=== PATIENT | female | born 1990 | race Caucasian/White ===

== ENCOUNTER 2024-05-07 20:53 | Outpatient (CLI) | payer OTHER, SELFPAY ==
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
--- OUTSIDE RECORDS SUMMARY | 2024-05-11 01:19 | XMS_ITS | Clinical Summary ---
Author Organization [facility] Address [place], [place] [address] Care Team Providers Care Deputy Sheriff Lieutenant Name Role Phone SanketRuth Primary Care Provider [phone] Allergies Active Allergy Reactions Criticality Noted Date Comments Latex Contact Dermatitis 05/31/2011 Medications Medication Sig Dispensed Refills Start Date End Date Status albuterol HFA (PRO-AIR; VENTOLIN; PROVENTIL) 90 mcg/actuation inhalerIndications: Mild intermittent asthma without complication Inhale 1-2 Puffs by mouth every 4 hours if needed (wheezing, trouble breathing). 2 Each 1 03/23/2021 Active hydroCHLOROthiazide (HCTZ) 25 mg tabletIndications:P rimary hypertension Take 1 Tablet (25 mg) by mouth once daily. 90 Tablet 3 11/16/2023 Active tirzepatide (MOUNJARO) 2.5 mg/0.5 mL penIndications:Morb id obesity (HC) Inject 0.5 mL (2.5 mg) subcutaneous once weekly. 6 mL 02/01/2024 Active Hospital, Clinic, or Other Facility Administered Medication Ordered Dose Route Frequency Start Date End Date Status levonorgestrel intrauterine device (MIRENA) 1 DeviceIndications:Encounter for insertion of mirena IUD 1 Device IU Q 5 YEARS 09/28/2020 Active Active Problems Problem Noted Date Diagnosed Date Primary hypertension 11/16/2023 Morbid obesity 11/16/2023 Mild intermittent asthma without complication Overview: Mild obstruction on PFT's 02/2020 Need for rhogam due to Rh negative mother 2013 Low grade squamous intraepit helial lesion (LGSIL) on cervical Pap smear 06/23/2014 Overview: 06/2014 LSIL 01/2015 [place] benign 02/2016 NIL/HPV negative 06/2018 NIL/HPV negative 09/2020 NIL/HPV negative Plan: routine screening, Pap/HPV due 09/2025 ADHD (attention deficit hyperactivity disorder) 05/28/2012 Hypovitaminosis D 07/06/2011 Overview: 07/05/11: 24.6; started on [id number] IU once daily, recheck in 3-4 months. Resolved Problems Problem Noted Date Diagnosed Date Resolved Date Sleep disturbance 02/06/2019 11/16/2023 Choledocholithiasis with obstruction 01/23/2015 11/16/2023 Essential hypertension 01/23/201511/16 Supervision of normal first 06/16/2014 11/16/2023 Overview: Problem List: 1) Blood Type O Negative. Got Rhogam 09/23/2014. 2) Varicella non-immune. 3) LSIL Pap smear, will repeat post 4) Slightly dilated left renal pelvis on 20w ultrasound. Repeat at about 26w was normal. 5) Transfer care to [place] for 3rd trimester and delivery 6) It's a boy! 7) GBS negative Encounters Date Type Department Care Team Description 03/19/2024 7:30 AM CDT Telemedicine [facility] [address] [place] [address] Marizol Chrsitian NP Telehealth (/Sinus infection /No vitals taken -virtual visit./) 03/19/2024 Travel 02/14/2024 Telephone [facility] [address] [place] [address] Stephen Cohen MD Prior Authorization (tirzepatide (MOUNJARO) 2.5 mg/0.5 mL pen (not covered)) from Last 3 Months Immunizations Name Administration Dates Next Due COVID-19 vaccine (Randy-J& J) ALICIA ROSA 12/28/2020 DTP 08/01/1998, 4,08/12/1993,1992 HIB PRP-OMP (PedvaxHIB) 12/29/1992 Hepatitis B (Peds) 06/08/2004,01/18/2002, 001 Influenza, IIV3 (Age 6-35 mos) 07/18/2016 Influenza, IIV3 (Age >=3 years) 08/02/2012 Influenza, IIV4 10/11/2021, 0,08/06/2017,2014,07/30/2014 MMR 05/30/1994,12/29/1992 Oral Polio Vaccine 08/01/1998, 4,08/12/1993,1992 Polio (Oral Polio Vaccine,Unspecified) 08/01/1998,05/30/1994,08/12/1993,1992 Td (Age >=7 Years) 05/28/2001 Tdap 11/15/2023,10/20/2014 Tdap, Unspecified 08/02/2012 Family History Medical History Relation Name Comments Allergies Brother 1 temperature of the water--- hives with showers, and if humid. Cancer Brother 2 of neurobl astoma Good Health Father Arthritis Maternal Aunt RA, Crohn's Blood Disease Maternal Grandfather Thromb ocytopenia Heart Disease Maternal Grandfather OK bef ore 55 Other Maternal Grandfather Uriel on's/glaucoma Cancer Maternal Grandmother Gliobla stoma Arthritis Mother RA, PCOS, spine problem Cancer Paternal Grandfather Leukemi a Relation Name Status Comments Brother 1 Brother 2 Father Maternal Aunt Maternal Grandfather Maternal Grandmother Mother Paternal Grandfather Social History Tobacco Use Types Packs/Day Years Used Date Smoking Tobacco: Never Smokeless Tobacco: Never Tobacco Cessation:Counseling Given: Yes Alcohol Use Standard Drinks/Week Comments Yes 0 (1 standard drink = 0.6 oz pure alcohol) couple times weekly 2-3 drinks at a sitting PHQ-2 Answer Date Recorded PHQ-2 TOTAL SCORE 0 05/06/2021 Social Connections Answer Date Recorded Frequency of Communication with Friends and Fami ly 0 11/16/2023 Financial Resource Strain Answer Date R ecorded Difficulty of Paying Living Expenses 3 11/16/2023 Difficulty of Paying Living Expenses Not on file 11/16/2023 Food Insecurity Answer Date Recorded Worried About Running Out of Food in the Last Ye ar 1 11/16/2023 Transportation Needs Answer Date Record ed Lack of Transportation (Medical) 1 11/16/2023 Housing Stability Answer Date Recorded Unable to Pay for Housing in the Last Year 1 11/16/2023 Sex and Gender Information Value Date Recorded Sex Assigned at Female 11/25/2022 9:57 AM SANE NURSE Gender Identity Female 11/25/2022 9:57 AM SANE NURSE Sexual Orientation Straight 11/25/2022 9: 57 AM SANE NURSE Obstetrics History Para Term AB IAB SAB Ectopic Multiple Livin g Live Births 1 1 1 0 0 0 0 0 0 1 1 Date Outcome GA Total Labor Labor/2nd/3rd Weight Sex Type Anes PTL Carmina A1 A5 Name Clin 12/31 Term 40w 5d M C-Sec tion N Living Dante Last Filed Vital Signs Vital Sign Reading Time Taken Comments Blood Pressure 139/89 12/18/2023 8:20 AM SANE NURSE Pulse 80 12/18/2023 8:20 AM SANE NURSE Temperature 36.9 ??C (98.5 ??F) 11/15/2023 9:38 PM CS T Respiratory Rate 16 11/15/2023 9:38 PM SANE NURSE Oxygen Saturation 100% 11/15/2023 9:38 PM SANE NURSE Inhaled Oxygen Concentration - - Weight 128.1 kg (282 lb 6.4 oz) 11/16/2023 1:43 PM SANE NURSE Height 163.2 cm (5' 4.27) 11/16/2023 1:43 PM CS T Body Mass Index 48.06 11/16/2023 1:43 PM SANE NURSE Plan of Treatment Health Maintenance Due Date Last Done Comments Hepatitis C screening for age 18-79 2007 Depression screening for age 12+ 05/06/2022 05/06/2021, 08/05/2019, 07/10/2018, Additional history exists COVID-19 vaccine series ( season) 2023 10/11/2021, 12/28/2020 Influenza for age 9-49 06/23/2024 , 08/17/2020, 08/06/2017, Additional history exists BMI (ht and wt on same day) for age 18+ 11/16/2024 11/16/2023, 03/22/2021, 04/22/2019, Additional history exists Pap test for age 21-65 09/28/2025 , 09/28/2020, 07/10/2018, Additional history exists Tetanus booster 11/15/2033 11/15/2023, 09/23, 08/02/2012, Additional history exists HIV for age 15-65 Completed 06/13/2014 Tdap Completed 11/15/2023, 09/23, 08/02/2012 Pneumococcal series for age 6-64 Aged Out No longer eligible based on patient's age to complete this topic Procedures Procedure Name Priority Date/Time Associated Diagnosis Comments YOUTH CARE PROFESSIONAL THIN PREP PAP SCREEN IMAGED Routine 09/28/2020 4:50 PM SANE NURSE Cervical cancer screening ANTI HIV / Routine 06/13/2014 1:25 PM CDT Supervision of normal first from Last 3 Months or Most Recently Relevant to Health Maintenance Results * YOUTH CARE PROFESSIONAL THIN PREP PAP SCREEN IMAGED (09/28/2020 4:50 PM SANE NURSE) Case Report Gynecologic Cytology Report ? Case: [id number] ? Authorizing Provider: ??Ruth Coles DO ?Collected: ? 09/28/2020 1650 ? Ordering Location: ? [facility] ?? Received: ?09/29/2020 0813 ? Clinic ? First Screen: ?Echo Conte ? Specimen: ?YOU[employer] C[employer] PROFESSIONAL ThinPrep Vial Screening, Cervical ? 10/07/2020 3:38 PM SANE NURSE [facility] INTERPRETATION/ RESULT NEGATIVE FOR INTRAEPITHELIAL LESION OR MALIGNANCY (NIL) (none) 10/07/2020 3:38 PM SANE NURSE [facility] IMEN ADEQUACY Satisfactory for evaluation Endocervical component present 10/07/2020 3:38 PM SANE NURSE [facility] HPV REQUEST HPV and PAP 10/07/2020 3:38 PM SANE NURSE [facility] Date of LMP 09/14/2020 10/07/2020 3:38 PM SANE NURSE [facility] Last Pap Date 07/10/18 10/07/2020 3:38 PM SANE NURSE [facility] Last Pap Result NIL 0 3:38 PM SANE NURSE [facility] Abnormal Pap or [place] Bx in last 5 years No 10/07/2020 3:38 PM SANE NURSE [facility] Menstrual Status Regular Periods 10/07/2020 3:38 PM SANE NURSE [facility] [place] Bx Done Today No 10/07/2020 3:38 PM SANE NURSE [facility] Additional Information None given 10/07/2020 3:38 PM SANE NURSE [facility] Comment: Cytology is screened at [facility] - [address] [address] and [facility] - [address] [place] [address], [place] [address] and [facility] - [address] [place] [address] Interpreted at [facility] - [address], [place] [address] Automated Review Successful 10/07/2020 3:38 PM SANE NURSE [facility] Comment:Specimen processed s uccessfully by automated hop grower device, [employer] Imaging System, [employer] ANCILLARY TESTING YOUTH CARE PROFESSIONAL HPV Ordered, Please see separate report 10/07/2020 3:38 PM SANE NURSE [facility] Note The pap test is a screening technique, not a diagnostic procedure. It is used primarily to screen for squamous cancers and precursor lesions. Published studies have shown that it is subject to both false negative and false positive results. The pap test should not be used as the sole means to diagnose or exclude pre-malignant and malignant lesions. 10/07/2020 3:38 PM SANE NURSE [facility] Other (Cervical) Non-Blood / Unknown 09/28/2020 4:50 PM SANE NURSE 09/29/2020 8:13 AM SANE NURSE Ruth Coles DO PATHOLOGY/CYTOLOGY [facility] [address] [place] [address], [place] * ANTI HIV 1/2 (06/13/2014 1:25 PM CDT) HIV-1/HIV-2 ANTIBODY Non-Reacti ve Non-Reacti ve 06/13/2014 7:45 PM CDT [facility] Blood specimen (specimen) BLOOD SPECIMEN / Unknown Venipuncture / Unknown 06/13/2014 1:25 PM CDT 06/13/2014 1:25 PM CDT Narrative [facility] - 06/13/2014 7:45 PM CDT HIV-1 p24 and HIV-1/HIV-2 Ab not detected Emma Lloyd MD SEND OUTS [facility] [address] [place] [address], [place] from Last 3 Months or Most Recently Relevant to Health Maintenance Advance Directives * Full Code (Latest Code Status on File) Date Activated Date Inactivated Comments 12/08/2017 8:27 AM 12/08/2017 10:48 AM Question Answer Comments Code Status Discussion: Not Discussed * Full Code Date Activated Date Inactivated Comments 12/08/2017 6:35 AM 12/08/2017 8:27 AM Question Answer Comments Code Status Discussion: Not Discussed * Full Code Date Activated Date Inactivated Comments 01/23/2015 7:32 PM 01/25/2015 1:00 PM Care Teams Deputy Sheriff Lieutenant Relationship Specialty Start Date End Date Ruth [place]es [place] [address] PCP - General Family Practice 01/26/15
--- OUTSIDE RECORDS SUMMARY | 2024-05-11 01:19 | XMS_ITS | Encounter Summary ---
Author Organization [facility] Address [address] [facility] [place] [address] Care Team Providers Care Stone Polisher Name Role Phone Terry Marc MD Primary Care Provider + Sarmad Schulz MD Primary Care Provider [phone] Sarmad Schulz MD Unavailable Ruth Coles Primary Care Provider [phone] Encounter Details Date Type Department Care Team (Latest Contact Info) Description 05/22/2012 [facility] Extended Documentation [facility] [place] [address] [address] [place], [place] [id number] Mild major depression (H) (Primary Dx) Social History Tobacco Use Types Packs/Day Years Used Date Smoking Tobacco: Never Smokeless Tobacco: Never Alcohol Use Standard Drinks/Week Comments Yes 0 (1 standard drink = 0.6 oz pur e alcohol) occasional Sex and Gender Information Value Date Recorded Sex Assigned at Not on file Gender Identity Not on file Sexual Orientation Not on file documented as of this encounter Plan of Treatment Upcoming Encounters Date Type Department Care Team (Late st Contact Info) Description 05/16/2024 11:20 AM CDT Office Visit [facility] [address] [place] [address] Noble Montesinos MD [address] [place] [address] documented as of this encounter Visit Diagnoses Diagnosis Mild major depression (H24)- Primary Major depressive disorder, single episode, mild documented in this encounter Care Teams Stone Polisher Relationship Specialty Start Date End Date Terry Marc MD PCP - General Family Practice 08/30/11 12/09/19 [place] [address] [place] [address] PCP - General Family Practice 12/10/19 03/09/21 Ruth Coles [address] [place] [address] PCP - General 03/10/21 [place] [address] [place] [address] Assigned PCP 12/15/19 10/07/22 documented as of this encounter
--- OUTSIDE RECORDS SUMMARY | 2024-05-11 01:19 | XMS_ITS | Encounter Summary ---
Author Organization [place] Address [address] [facility] [place] [address] Care Team Providers Care Insulation Board Coater Operator Name Role Phone Terry Marc MD Primary Care Provider + JazzSarmad ireland MD Primary Care Provider [phone] Sarmad Schulz MD Unavailable Ruth Coles Primary Care Provider [phone] Encounter Details Date Type Department Care Team (Late st Contact Info) Description 05/01/2012 [facility] Medical Advice [facility] [id number] [place] [address], [address] [place] [address] [place] [address] [place] [address] Social History Tobacco Use Types Packs/Day Years [...] Description 05/16/2024 11:20 AM CDT Office Visit [facility] [address] [place] [address] Noble Montesinos MD [address] [place] [address] documented as of this encounter Visit Diagnoses Not on filedocumented in this encounter Care Teams Insulation Board Coater Operator Relationship Specialty Start Date End Date Terry Marc MD PCP - General Family Practice 08/30/11 12/09/19 [place] [address] [place] [address] PCP - General Family Practice 12/10/19 03/09/21 Ruth Coles [address] [place] [address] PCP - General 03/10/21 [place] [address] [place] [address] Assigned PCP 12/15/19 10/07/22 documented as of this encounter
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
--- OUTSIDE RECORDS SUMMARY | 2024-05-11 01:19 | XMS_ITS | Encounter Summary ---
Author Organization [facility] Address [address] [facility] [place] [address] Care Team Providers Care Medical Insurance Collector Name Role Phone Ruth Coles Primary Care Provider [phone] Encounter Details Date Type Department Care Team (Latest Contact Info) Description 05/07/2024 Travel Social History Tobacco Use Types Packs/Day Years [...] Description 05/16/2024 11:20 AM CDT Office Visit [facility] [address] [address] Noble Montesinos MD [address] [place] [phone] documented as of this encounter Visit Diagnoses Not on filedocumented in this encounter Additional Health Concerns Assessment Noted Time PHQ-9 Depression Total Score: 8 12/10/19 

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
--- OUTSIDE RECORDS SUMMARY | 2024-05-11 01:20 | XMS_ITS | Clinical Summary ---
Author Organization [facility] Address [address] [place] [address] Care Team Providers Care Orthopedic Coder Name Role Phone Ruth Coles DO Primary Care Provider Source Comments You are receiving this document as you are listed as the primary care provider,follow-up provider, or the patient has been referred to you for consultation.This is in compliance with the Medicare and[facility] Cent[facility] EHR Incentive Program,which states Providers who transition their patient to another setting of careor provider of care or refers their patient to another provider of care shouldprovide summary care record for each transition of care or referral. [facility] Allergies No known active allergies Medications No known medications Social History Tobacco Use Types Packs/Day Years Used Date Smoking Tobacco: Never Smokeless Tobacco: Never Sex and Gender Information Value Date Recorded Sex Assigned at Not on file Gender Identity Not on file Sexual Orientation Not on file Plan of Treatment Health Maintenance Due Date Last Done Comments Cervical Cancer Screening Due 1989 Hep C Screening (Preventive Services) 1989 HIV Screening (Preventive Services) 2005 Adult Preventive Visit 2007 HepB (1) 2008 COVID-19 Vaccine ( season) 2023 Influenza (#1) 2024 08/06/2017, 07/24, 07/30/2014 DTaP/Tdap/Td (6 - Tdap) 10/20/2024 10/20/20 14, 05/28/2001, 08/01/1998, Additional history exists Zoster/Shingles (1 of 2) 2039 Hib Completed 12/29/1992 HPV Vaccine Aged Out No longer eligi ble based on patient's age to complete this topic HepA Aged Out No longer eligi ble based on patient's age to complete this topic IPV (Polio) Aged Out No longer eligi ble based on patient's age to complete this topic MCV4 Aged Out No longer eligi ble based on patient's age to complete this topic Pneumococcal Aged Out No longer eligi ble based on patient's age to complete this topic Care Teams Orthopedic Coder Relationship Specialty Start Date End Date Ruth Coles DO [address] [place] [address] PCP - General Family Practice 11/03/17
--- OUTSIDE RECORDS SUMMARY | 2024-05-11 01:20 | XMS_ITS | Patient Health Record ---
Author Organization [facility] Address [address] [place] [address] Care Team Providers Care Cosmetic Sales Consultant Name Role Phone None, No PCP Primary Care Provider Unavailabl e Eul, Elida Unavailable [phone] Allergies No Known Allergies Results Component Value Reference Range Notes BV/VAGINITIS PANEL DNA PROBE Reviewed date:09/04/2023 09:22:53 AM Interpretation: Performing Lab:[place], [id number] [facility] [address], Z[place]uedyVC[address] Tong Cavazos Notes/Report: MULTIPLE TESTING PRIORITIES; ROUTINE TESTING TO FOLLOW. TRICHOMONAS: NOT DETECTED NOT DETECTED GARDNERELLA: NOT DETECTED NOT DETECTED ONEL: NOT DETECTED NOT DETECTED TSH (IH) Reviewed date:09/05/2023 01:00:31 PM Interpretation: Performing Lab: Notes/Report: Access 2 ([id number]), Access 2 Rel[employer]link HEMOGLOBIN A1c Reviewed date:09/04/2023 09:27:13 AM Interpretation: Performing Lab:[place], [id number], [place]ito SinghPdhrCL[address] Tong Cavazos Notes/Report: HEMOGLOBIN A1c 5.1 <5.7 % of total Hgb control in non- diabetic patients. Different metrics may apply to specific patient populations. Standards of Medical Care in Diabetes(ADA). For the purpose of screening for the presence of diabetes: <5.7% Consistent with the absence of diabetes 5.7-6.4% Consistent with increased risk for diabetes (prediabetes) > or =6.5% Consistent with diabetes This assay result is consistent with a decreased risk of diabetes. Currently, no consensus exists regarding use of hemoglobin A1c for diagnosis of diabetes in children. According to [place] Diabetes Association (ADA) guidelines, hemoglobin A1c <7.0% represents optimal CBC (INCLUDES DIFF/PLT) Reviewed date:09/04/2023 09:27:13 AM Interpretation: Performing Lab:[facility] [employer] [id number] [facility] Tong Cavazos Notes/Report: WHITE BLOOD CELL COUNT 7.8 3.8-10.8 Thousand/ uL RED BLOOD CELL COUNT 4.40 3.80-5.10 Million/uL HEMOGLOBIN 13.5 11.7-15.5 g/dL HEMATOCRIT 40.4 35.0-45.0 % MCV 91.8 80.0-100.0 fL MCH 30.7 27.0-33.0 pg MCHC 33.4 32.0-36.0 g/dL RDW 12.2 11.0-15.0 % PLATELET COUNT 302 140-400 Thousand/uL MPV 11.0 7.5-12.5 fL ABSOLUTE NEUTROPHILS 5031 6828-4974 cells/uL ABSOLUTE LYMPHOCYTES 0099 476-8600 cells/uL ABSOLUTE MONOCYTES 655 200-950 cells/uL ABSOLUTE EOSINOPHILS 109 15-500 cells/uL ABSOLUTE BASOPHILS 39 0-200 cells/uL NEUTROPHILS 64.5 LYMPHOCYTES 25.2 MONOCYTES 8.4 EOSINOPHILS 1.4 BASOPHILS 0.5 COMPREHENSIVE METABOLIC PANE L (CMP) Reviewed date:09/04/2023 09:27:13 AM Interpretation: Performing Lab:[facility] [employer] [id number] [facility] Tong Cavazos Notes/Report: GLUCOSE 83 65-99 mg/dL Fasting reference interval UREA NITROGEN (BUN) 9 7-25 mg/dL CREATININE 0.68 0.50-0.97 mg/dL EGFR 117 > OR = 60 mL/min/1.73m2 BUN/CREATININE RATIO SEE NOTE: 6-22 (calc) Not Reported: BUN and Creatinine are within reference range. SODIUM 135 135-146 mmol/L POTASSIUM 3.9 3.5-5.3 mmol/L CHLORIDE 100 98-110 mmol/L CARBON DIOXIDE 24 20-32 mmol/L CALCIUM 9.7 8.6-10.2 mg/dL PROTEIN, TOTAL 7.8 6.1-8.1 g/dL ALBUMIN 4.7 3.6-5.1 g/dL GLOBULIN 3.1 1.9-3.7 g/dL (calc) ALBUMIN/GLOBULIN RATIO 1.5 1.0-2.5 (calc) BILIRUBIN, TOTAL 0.5 0.2-1.2 mg/dL ALKALINE PHOSPHATASE 87 31-125 U/L AST 30 10-30 U/L ALT 51 6-29 U/L THINPREP TIS AND HPV mRNA E6 /E7 (30 yrs and over) Reviewed date:09/05/2023 01:03:27 PM Interpretation: Performing Lab:[facility] [id number], Nqzym[place]obeNW[address] Cory Cruz Notes/Report: SPLIT 09/01/2023 FROM [id number] HPV mRNA E6/E7 Not Detected Not Detected Methodology: [employer] Teacher-Mediated Amplification This assay detects E6/E7 viral messenger RNA (mRNA) from 14 high-risk HPV types (16,18,31,33,35,39,45,51 ,52,56,58,59,66,68). Cervical sources are required for HPV testing. If a vaginal source from a patient who has had a total hysterectomy with removal of cervix was submitted, please contact the testing laboratory for alternative testing options. For additional information, please refer to http://education.[employer]/faq/ZFD408 v1 (This link if provided for information/ educational purposes only.) Reason For Referral No Information Medications Medication SIG (Take, Route, Fr equency, Duration) Notes Start Date End Date Status Diflucan 150 MG 1 tablet Orally ever y 72 hours for 1 days 09/01/2023 Active Social History Tobacco Use: Social History Observation Description Date Details (start date - stop date) Never Smoker NA - NA Tobacco Use/Smoking Question Answer Notes Are you a nonsmoker Alcohol Screen (Audit-C) Question Answer Notes Did you have a drink containing alcohol in the p ast year? Yes Points 0 Interpretation Negative Vital Signs Blood pressure diastolic 114 mm Hg 09/01/2023 Height 64 in 09/01/2023 Blood pressure systolic 160 mm Hg 09/01/2023 Weight 290 lbs 09/01/2023 BMI 49.77 kg/m2 09/01/2023 Encounters Encounter Location Date Provider Diagnosis [address] [address] 09/01/2023 Elida Young Encounter for well w maite exam Z01.419 ; Screening for metabolic disorder Z13.228 ; Diabetes mellitus screening Z13.1 ; Screening for endocrine disorder Z13.29 ; Encounter for annual routine gynecological examination Z01.419 and Encounter for screening for human papillomavirus (HPV) Z11.51 [facility] [id number] [place] [id number] 09/01/2023 Elida Eul Encounter for screen ing for malignant neoplasm of cervix Z12.4 ; Well woman exam with routine gynecological exam V72.31 and Encounter for screening for other disorder Z13.[address] [address] 09/01/2023 Elida Eul [facility] [address] [place] [address] 09/04/2023 Elida Eul [facility] [address] [place] [address] 09/04/2023 Elida Eul Assessments Encounter Date Diagnosis (ICD Code) Assessment Notes Treat ment Notes Treatment Clinical Notes 09/01/2023 Encounter for well woman exam (ICD-10 - Z01.419) 09/01/2023 Encounter for screening for malignant neoplasm of cervix (ICD-10 - Z12.4) 09/01/2023 Well woman exam with routine gynecological exam (ICD9-CM - V72.31) Pap smear updated. Discussed with patient that cervix was very difficult to visualize and may need to return if specimen is inadequate STI Screening offered and declined Flu shot declined CBC, CMP, TSH, HbA1C today 09/01/2023 Encounter for screening for other disorder (ICD-10 - Z13.89) 09/01/2023 Screening for metabolic disorder (ICD-10 - Z13.228) 09/01/2023 Diabetes mellitus screening (ICD-10 - Z13.1) 09/01/2023 Screening for endocrine disorder (ICD-10 - Z13.29) 09/01/2023 Encounter for annual routine gynecological examination (ICD-10 - Z01.419) 09/01/2023 Encounter for screening for human papillomavirus (HPV) (ICD-10 - Z11.51) 09/01/2023 Other Speculum exam consistent with yeast infection. Diflucan x2 sent to pharmacy Plan Of Treatment No Information Insurance Providers Payer Name Payer Address Payer Phone Subscriber Number Group Number Insured Name Patient Relationship to Insured Coverage Start Date Coverage End Date [employer] (Ins. Bill) [address] [address] [place], [place] [id number] Paty Chavez Self - patient is the insured Medical (General) History Medical History History ICD Code Abnormal Pap, 2014 Hypertension Gall Bladder Disease Bladder Infections Depression/Anixety Surgical History Surgery Date(Month/Year) laparoscopic Gallbladder Removal 2015 section 2014
== END 2024-05-07 20:54 | disposition home or self-care (01) ==
LOC: AMB 05-11 01:17
PROVIDERS: PCP Physician Assistant; Visit Provider Family Medicine
DX: S99.912A Unspecified injury of left ankle, initial encounter (principal); V23.49XA Other motorcycle driver injured in collision with car, pick-up truck or van in traffic accident, initial encounter; Y92.410 Unspecified street and highway as the place of occurrence of the external cause
CPT/HCPCS: A0998